=== PATIENT | male | born 2000 | race Two or more races ===

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

== ENCOUNTER 2019-02-09 11:30 | Inpatient (IN) | payer OTHER ==
[~2019-02-09] VITALS: Ht 182.9 cm; Wt 118.2 kg
[~2019-02-09 11:30] MED LIST changes: -CloNIDine HCL 0.2 MG TABLET PO ONE; -LISINOPRIL 10 MG TABLET PO ONE
[2019-02-09 12:24] LABS: GLUCOSE,POINT OF CARE 164 MG/DL (70-110)
[2019-02-09] MEDS ORDERED: INSNOV SQ (12:38)
[2019-02-09] MEDS ORDERED: AMLO-511 PO (12:38)
[2019-02-09] MEDS ORDERED: TAMS-1 PO (12:38)
[2019-02-09] MEDS ORDERED: INSU300I3 SQ (12:38)
[2019-02-09] MEDS ORDERED: INSU100V SQ (12:38)
[2019-02-09] MEDS ORDERED: GLUC1VIA3 INJ (12:38)
[2019-02-09] MEDS ORDERED: HYDR25TA PO (12:38)
[2019-02-09] MEDS ORDERED: INSLAN SQ (12:38)
[2019-02-09] MEDS ORDERED: INSU100I15 SQ (12:38)
[2019-02-09] MEDS ORDERED: FERR-89 PO (12:38)
[2019-02-09] MEDS ORDERED: VITAD1000 PO (12:38)
[2019-02-09 14:50] LABS: BASOPHILS % (AUTO) 0.3 % (0.0-2.0); EOSINOPHILS % (AUTO) 3.3 % (1.0-6.0); HEMATOCRIT 31.5 % (41-53); HEMOGLOBIN 10.1 g/dL (13.5-17.5); LYMPHOCYTES # (AUTO) 1.1 K/uL (1.0-4.8); LYMPHOCYTES % (AUTO) 27.1 % (22.0-44.0); MEAN CORPUSCULAR HEMOGLOBIN 26.4 pg (26.0-34.0); MEAN CORPUSCULAR HGB CONC 32.2 G/dL (31.0-37.0); MEAN CORPUSCULAR VOLUME 82 fL (80-100); MONOCYTES # (AUTO) 0.3 K/uL (0.1-1.0); MONOCYTES % (AUTO) 8.4 % (2.0-9.0); NEUTROPHILS # (AUTO) 2.4 K/uL (1.8-7.7); NEUTROPHILS % (AUTO) 60.9 % (40.0-70.0); PLATELET COUNT (AUTO) 197 K/uL (150-450); RED BLOOD CELL COUNT(AUTO) 3.84 MIL/uL (4.50-5.90); RED CELL DISTRIBUTION WIDTH 12.8 % (11.5-14.5)
[2019-02-09 14:56] LABS: APPEARANCE,URINE CLEAR (CLEAR); BILIRUBIN,URINE NEGATIVE (NEGATIVE); GLUCOSE, URINE (UA) NEGATIVE (NEGATIVE); KETONES,URINE NEGATIVE (NEGATIVE); LEUKOCYTE ESTERASE ,URINE TRACE (NEGATIVE); NITRATE,URINE NEGATIVE (NEGATIVE); OCCULT BLOOD,URINE NEGATIVE (NEGATIVE); PROTEIN,URINE NEGATIVE (NEGATIVE); UROBILINOGEN,URINE 0.2 mg/dL (<=1.0)
[2019-02-09 15:06] LABS: ALBUMIN 3.9 g/dL (3.4-5.0); BILIRUBIN,TOTAL 0.4 mg/dL (0.1-1.0); CALCIUM, TOTAL 9.3 mg/dL (8.8-10.5); CREATININE 4.69 mg/dL (0.60-1.30); TOTAL PROTEIN, SERUM 8.9 g/dL (6.4-8.2)
[2019-02-09 15:20] LABS: BACTERIA,URINE None Seen /HPF (None Seen); RBC,URINE None Seen /HPF (0-2); SQUAMOUS EPITHELIAL CELL,UR None Seen /LPF (None Seen); WBC,URINE None Seen /HPF (0-5)
[2019-02-09] MEDS ORDERED: SODIUM POLYSTYRENE SULFONATE 15 GM/60 ML SUSPENSION BOTTLE PO ONE (15:30)
[2019-02-09] MEDS ORDERED: DEXTROSE 50%-WATER 25 GM/50 ML SYRINGE IVP ONE (15:30)
[2019-02-09] MEDS ORDERED: INSULIN REGULAR, HUMAN 100 UNITS/ML SQ ONE (15:30)
[2019-02-09] MEDS ORDERED: ALBUTEROL SULFATE 5 MG/ML 20 ML NEB SOLN [BULK] NEB ONE (15:30)
[2019-02-09 16:09] LABS: GLUCOSE,POINT OF CARE 119 MG/DL (70-110)
[2019-02-09] MEDS ORDERED: 0.9% SODIUM CHLORIDE 5 ML NEB SOLUTION NEB ONE (16:10)
[2019-02-09] MEDS ORDERED: DEXTROSE 50%-WATER 25 GM/50 ML SYRINGE IVP PRN (16:30)
[2019-02-09] MEDS ORDERED: ACETAMINOPHEN 325 MG TABLET PO PRN (16:30)
[2019-02-09] MEDS ORDERED: BUMETANIDE 0.25 MG/ML 4 ML VIAL IVP ONE (16:30)
[2019-02-09] MEDS: AmLODIPine BESYLATE 5 MG TABLET PO SCH (17:02)
[2019-02-09 18:23] VITALS: BP 160/96
[2019-02-09 20:04] LABS: CALCIUM, TOTAL 9.1 mg/dL (8.8-10.5); CREATININE 4.84 mg/dL (0.60-1.30); POTASSIUM 4.8 mmol/L (3.5-5.1)
[2019-02-09] MEDS: DOCUSATE SODIUM 100 MG CAPSULE PO SCH (20:27)
[2019-02-09 20:32] VITALS: BP 143/96
[2019-02-09] MEDS: INSULIN LISPRO 100 UNITS/ML SQ PRN (20:54)
[2019-02-10 00:22] VITALS: BP 139/87
[2019-02-10 04:00] VITALS: BP 150/80
[2019-02-10] MEDS: INSULIN LISPRO 100 UNITS/ML SQ PRN ×4 (06:17→21:33)
[2019-02-10 06:50] LABS: GLUCOMETER DEV NAME(LOC) 5S.1; GLUCOSE,POINT OF CARE 145 MG/DL (70-110)
[2019-02-10 06:50] LABS: GLUCOMETER DEV NAME(LOC) 5S.1; GLUCOSE,POINT OF CARE 110 MG/DL (70-110)
[2019-02-10 07:28] VITALS: BP 151/77
[2019-02-10] MEDS: AmLODIPine BESYLATE 5 MG TABLET PO SCH (08:09)
[2019-02-10] MEDS: DOCUSATE SODIUM 100 MG CAPSULE PO SCH ×2 (08:09→19:54)
[2019-02-10 11:00] VITALS: BP 143/88
[2019-02-10 14:54] LABS: GLUCOMETER DEV NAME(LOC) 5S.1; GLUCOSE,POINT OF CARE 181 MG/DL (70-110)
[2019-02-10 15:30] VITALS: BP 150/91
[2019-02-10] MEDS: HYDROCODONE/ACETAMINOPHEN 5-325 MG TABLET PO PRN ×2 (16:41→23:39)
[2019-02-10 19:54] VITALS: BP 157/99
[2019-02-11] VITALS (8 sets, daily range): BP systolic 136–156; BP diastolic 74–119
[2019-02-11 02:19] LABS: GLUCOMETER DEV NAME(LOC) 5S.1; GLUCOSE,POINT OF CARE 165 MG/DL (70-110)
[2019-02-11] MEDS: HYDROCODONE/ACETAMINOPHEN 5-325 MG TABLET PO PRN ×3 (05:22→16:06)
[2019-02-11] MEDS: INSULIN LISPRO 100 UNITS/ML SQ PRN ×4 (05:23→21:12)
[2019-02-11 06:42] LABS: BASOPHILS % (AUTO) 0.6 % (0.0-2.0); EOSINOPHILS % (AUTO) 5.1 % (1.0-6.0); HEMATOCRIT 29.7 % (41-53); HEMOGLOBIN 9.5 g/dL (13.5-17.5); LYMPHOCYTES # (AUTO) 1.1 K/uL (1.0-4.8); LYMPHOCYTES % (AUTO) 35.4 % (22.0-44.0); MEAN CORPUSCULAR HEMOGLOBIN 26.6 pg (26.0-34.0); MEAN CORPUSCULAR VOLUME 83 fL (80-100); MONOCYTES # (AUTO) 0.4 K/uL (0.1-1.0); MONOCYTES % (AUTO) 11.7 % (2.0-9.0); NEUTROPHILS # (AUTO) 1.5 K/uL (1.8-7.7); NEUTROPHILS % (AUTO) 47.2 % (40.0-70.0); PLATELET COUNT (AUTO) 204 K/uL (150-450); RED BLOOD CELL COUNT(AUTO) 3.57 MIL/uL (4.50-5.90); RED CELL DISTRIBUTION WIDTH 12.8 % (11.5-14.5)
[2019-02-11 06:54] LABS: CALCIUM, TOTAL 9.2 mg/dL (8.8-10.5); CREATININE 3.87 mg/dL (0.60-1.30); PHOSPHORUS 6.3 mg/dL (2.5-4.9); POTASSIUM 4.4 mmol/L (3.5-5.1)
[2019-02-11 07:05] LABS: GLUCOMETER DEV NAME(LOC) 5N.2; GLUCOSE,POINT OF CARE 156 MG/DL (70-110)
[2019-02-11 07:05] LABS: GLUCOMETER DEV NAME(LOC) 5N.2; GLUCOSE,POINT OF CARE 148 MG/DL (70-110)
[2019-02-11] MEDS: DOCUSATE SODIUM 100 MG CAPSULE PO SCH ×2 (09:00→20:12)
[2019-02-11] MEDS: AmLODIPine BESYLATE 5 MG TABLET PO SCH (09:22)
[2019-02-11] MEDS ORDERED: AmLODIPine BESYLATE 5 MG TABLET PO ONE (11:15)
[2019-02-11] MEDS: SEVELAMER CARBONATE 800 MG TABLET PO SCH ×2 (12:06→17:15)
[2019-02-11 21:23] LABS: GLUCOMETER DEV NAME(LOC) 5S.1; GLUCOSE,POINT OF CARE 197 MG/DL (70-110)
[2019-02-11 23:00] LABS: GLUCOMETER DEV NAME(LOC) 5N.2; GLUCOSE,POINT OF CARE 186 MG/DL (70-110)
[2019-02-11 23:00] LABS: GLUCOMETER DEV NAME(LOC) 5N.2; GLUCOSE,POINT OF CARE 167 MG/DL (70-110)
[2019-02-12] MEDS: HYDROCODONE/ACETAMINOPHEN 5-325 MG TABLET PO PRN ×2 (00:10→09:03)
[2019-02-12 00:32] VITALS: BP 153/92
[2019-02-12 05:53] VITALS: BP 138/78
[2019-02-12] MEDS: INSULIN LISPRO 100 UNITS/ML SQ PRN ×2 (05:57→11:15)
[2019-02-12 06:15] LABS: GLUCOMETER DEV NAME(LOC) 5S.1; GLUCOSE,POINT OF CARE 176 MG/DL (70-110)
[2019-02-12 07:20] LABS: CALCIUM, TOTAL 9.5 mg/dL (8.8-10.5); CREATININE 3.3 mg/dL (0.60-1.30); POTASSIUM 4.5 mmol/L (3.5-5.1)
[2019-02-12 07:25] VITALS: BP 157/86
[2019-02-12] MEDS: SEVELAMER CARBONATE 800 MG TABLET PO SCH ×2 (08:00→12:35)
[2019-02-12] MEDS: DOCUSATE SODIUM 100 MG CAPSULE PO SCH (08:57)
[2019-02-12] MEDS ORDERED: AmLODIPine BESYLATE 5 MG TABLET PO SCH (09:00)
[2019-02-12 12:50] LABS: GLUCOMETER DEV NAME(LOC) 5S.1; GLUCOSE,POINT OF CARE 257 MG/DL (70-110)
== END 2019-02-12 12:49 | disposition home or self-care (01) | DRG 425 ==
LOC: EMS 11:30 → 5S 17:16 → 4E 02-10 18:05
PROVIDERS: ADMIT Internal Medicine; ATTEND Internal Medicine
DX: E87.5 Hyperkalemia (principal); N17.9 Acute kidney failure, unspecified; E11.21 Type 2 diabetes mellitus with diabetic nephropathy; E66.01 Morbid (severe) obesity due to excess calories; N18.5 Chronic kidney disease, stage 5; E11.22 Type 2 diabetes mellitus with diabetic chronic kidney disease; I12.9 Hypertensive chronic kidney disease with stage 1 through stage 4 chronic kidney disease, or unspecified chronic kidney disease; N13.9 Obstructive and reflux uropathy, unspecified; D64.9 Anemia, unspecified; E83.39 Other disorders of phosphorus metabolism; N13.30 Unspecified hydronephrosis; N36.8 Other specified disorders of urethra; Z79.4 Long term (current) use of insulin; Z68.35 Body mass index [BMI] 35.0-35.9, adult
CPT/HCPCS: 76770; 84100; 93005; 94644; 96372; 96374; G0378; J1815; J3490

== ENCOUNTER 2019-07-19 13:21 | Emergency (ER) | payer OTHER ==
[~2019-07-19] VITALS: Ht 183.5 cm; Wt 100.0 kg
[~2019-07-19 13:21] MED LIST changes: +AMLO5TAB9 PO; +CHOL100018 PO; +INSNOV SQ; -INSU100I15 SQ; -LISI-661 PO; +TAMS-1 PO
[2019-07-19 14:12] LABS: GLUCOSE,POINT OF CARE > 600 MG/DL (70-110)
[2019-07-19] MEDS ORDERED: INSULIN REGULAR, HUMAN 100 UNITS/ML IVP ONE ×2 (14:30→15:15)
[2019-07-19] MEDS ORDERED: SODIUM CHLORIDE 0.9% 1,000 ML IV ONE ×2 (14:30→15:15)
[2019-07-19 14:40] LABS: HEMATOCRIT 32.3 % (41-53); HEMOGLOBIN 10.3 g/dL (13.5-17.5); MEAN CORPUSCULAR HEMOGLOBIN 25.6 pg (26.0-34.0); MEAN CORPUSCULAR VOLUME 80 fL (80-100); PLATELET COUNT (AUTO) 186 K/uL (150-450); RED BLOOD CELL COUNT(AUTO) 4.03 MIL/uL (4.50-5.90)
[2019-07-19 15:02] LABS: CALCIUM, TOTAL 8.4 mg/dL (8.8-10.5); CREATININE 4.61 mg/dL (0.60-1.30); POTASSIUM 5.7 mmol/L (3.5-5.1)
[2019-07-19 15:28] LABS: GLUCOSE,POINT OF CARE 460 MG/DL (70-110)
[2019-07-19 15:48] LABS: APPEARANCE,URINE CLEAR (CLEAR); BILIRUBIN,URINE NEGATIVE (NEGATIVE); GLUCOSE, URINE (UA) >=1000 mg/dL (NEGATIVE); KETONES,URINE NEGATIVE (NEGATIVE); LEUKOCYTE ESTERASE ,URINE TRACE (NEGATIVE); NITRATE,URINE NEGATIVE (NEGATIVE); OCCULT BLOOD,URINE NEGATIVE (NEGATIVE); PH,URINE 6.5 (5.0-8.0); PROTEIN,URINE NEGATIVE (NEGATIVE); UROBILINOGEN,URINE 0.2 mg/dL (<=1.0)
[2019-07-19 15:52] LABS: BAND NEUTROPHILS % (MANUAL) 1 % (0-5); EOSINOPHILS % (MANUAL) 1 % (1-6); LYMPHOCYTES % (MANUAL) 18 % (22-44); MONOCYTES % (MANUAL) 2 % (2-9); REACTIVE LYMPHOCYTES 9 % (0-0); SEGMENTED NEUTROPHILS % 69 % (40-70)
[2019-07-19 15:53] LABS: PLATELET MORPHOLOGY COMMENT NORMAL
[2019-07-19 15:57] LABS: BACTERIA,URINE Rare /HPF (None Seen); RBC,URINE 0-2 /HPF (0-2); SQUAMOUS EPITHELIAL CELL,UR Rare /LPF (None Seen)
[2019-07-19 16:35] VITALS: BP 139/78
[2019-07-19 16:40] LABS: GLUCOSE,POINT OF CARE 213 MG/DL (70-110)
== END 2019-07-19 17:00 | disposition home or self-care (01) ==
LOC: EMS 13:27
DX: E11.65 Type 2 diabetes mellitus with hyperglycemia (principal); I10 Essential (primary) hypertension; Z79.899 Other long term (current) drug therapy; Z88.8 Allergy status to other drugs, medicaments and biological substances
CPT/HCPCS: 36415; 80048; 81001; 82962; 85025; 93005; 96361; 96374; 96376; 99285; J1815; J7030; 82948

== ENCOUNTER 2019-07-31 12:12 | Inpatient (IN) | payer OTHER ==
[~2019-07-31] VITALS: Ht 182.9 cm; Wt 116.5 kg
[2019-07-31 12:32] LABS: GLUCOSE,POINT OF CARE 308 MG/DL (70-110)
[2019-07-31] MEDS ORDERED: CHOL100018 PO (12:44)
[2019-07-31] MEDS ORDERED: INSULIN REGULAR, HUMAN 100 UNITS/ML IVP ONE (12:45)
[2019-07-31] MEDS ORDERED: SODIUM CHLORIDE 0.9% 1,000 ML IV ONE ×2 (12:45→23:30)
[2019-07-31] MEDS ORDERED: CefTRIAXone 1 GM/DEXTROSE 50 ML IV ONE (14:15)
[2019-07-31] MEDS ORDERED: SODIUM CHLORIDE 0.9% 2,000 ML IV ONE (14:15)
[2019-07-31] MEDS ORDERED: ACETAMINOPHEN 500 MG TABLET PO ONE (14:30)
[2019-07-31 14:31] LABS: BASOPHILS % (AUTO) 0.4 % (0.0-2.0); EOSINOPHILS % (AUTO) 2.7 % (1.0-6.0); LYMPHOCYTES # (AUTO) 1.2 K/uL (1.0-4.8); LYMPHOCYTES % (AUTO) 17.9 % (22.0-44.0); MEAN CORPUSCULAR HEMOGLOBIN 25.8 pg (26.0-34.0); MEAN CORPUSCULAR HGB CONC 32.2 G/dL (31.0-37.0); MEAN CORPUSCULAR VOLUME 80 fL (80-100); MONOCYTES # (AUTO) 0.7 K/uL (0.1-1.0); MONOCYTES % (AUTO) 10.1 % (2.0-9.0); NEUTROPHILS # (AUTO) 4.6 K/uL (1.8-7.7); NEUTROPHILS % (AUTO) 68.9 % (40.0-70.0); PLATELET COUNT (AUTO) 235 K/uL (150-450); RED BLOOD CELL COUNT(AUTO) 3.87 MIL/uL (4.50-5.90); RED CELL DISTRIBUTION WIDTH 13.1 % (11.5-14.5)
[2019-07-31 14:43] LABS: ANION GAP 15 mmol/L (8-16); CALCIUM, TOTAL 9.3 mg/dL (8.8-10.5); CARBON DIOXIDE 23 mmol/L (22-29); CHLORIDE 102 mmol/L (98-107); GLOMERULAR FILTR. RATE CALC 23 mL/min (>60); GLUCOSE,RANDOM 254 mg/dL (70-110); POTASSIUM 4.4 mmol/L (3.5-5.1); SODIUM SERUM 140 mmol/L (136-145); UREA NITROGEN, BLOOD 35 mg/dL (7-18)
[2019-07-31 14:48] LABS: ACETONE,BLOOD NEGATIVE (NEGATIVE); ALANINE AMINOTRANSFERASE 12 U/L (12-78); ALKALINE PHOSPHATASE 106 U/L (46-116); ASPARTATE AMINOTRANSFERASE 11 U/L (15-37); BILIRUBIN,TOTAL 0.5 mg/dL (0.1-1.0); LIPASE 231 U/L (73-393); TOTAL PROTEIN, SERUM 9.3 g/dL (6.4-8.2)
[2019-07-31 15:02] LABS: SITE, BLOOD GAS RT RADIAL; SOURCE, BLOOD GAS ARTERIAL; TEMPERATURE, FAHRENHEIT, BG 98.6 FAHREN (96.0-98.6)
[2019-07-31 15:03] LABS: ABG BASE EXCESS -6.4 mmol/L (-2.0-3.0); ABG HCO3 19.8 mmol/L (22.0-26.0); ABG OXYHEMOGLOBIN 95.2 % (94.0-100.0); ABG PCO2 32 mmHg (35-45); ABG PH 7.381 (7.350-7.450); ABG TOTAL HEMOGLOBIN 9.8 G/dL (12.0-18.0); PO2, ARTERIAL BG 81.6 mmHg (80.0-100.0)
[2019-07-31 15:04] LABS: ABG A-A DIFF O2 29.6 mmHg (10-20.0); ABG CARBOXYHEMOGLOBIN 0.8 % (0.0-3.0); ABG METHEMOGLOBIN 0.3 % (0.0-1.5); ABG OXYGEN CONTENT 13.2 mL/dL (15.0-23.0); ABG OXYGEN SATURATION 96.3 % (95.0-98.0); O2 DEVICE,BLOOD GAS ROOM AIR (ROOM AIR)
[2019-07-31 15:51] LABS: INFLUENZA TYPE A NEGATIVE FOR TYPE A (NEGATIVE); INFLUENZA TYPE B NEGATIVE FOR TYPE B (NEGATIVE)
[2019-07-31 16:28] LABS: APPEARANCE,URINE CLOUDY (CLEAR); BILIRUBIN,URINE NEGATIVE (NEGATIVE); GLUCOSE, URINE (UA) 250 mg/dL (NEGATIVE); KETONES,URINE NEGATIVE (NEGATIVE); LEUKOCYTE ESTERASE ,URINE LARGE (NEGATIVE); NITRATE,URINE NEGATIVE (NEGATIVE); OCCULT BLOOD,URINE LARGE (NEGATIVE); PROTEIN,URINE SEE CONFIRM (NEGATIVE); UROBILINOGEN,URINE 0.2 mg/dL (<=1.0)
[2019-07-31 16:40] LABS: SULFOSALICYLIC ACID,URINE 4+ (Negative)
[2019-07-31 16:42] LABS: BACTERIA,URINE Few /HPF (None Seen); SQUAMOUS EPITHELIAL CELL,UR Rare /LPF (None Seen)
[2019-07-31] MEDS ORDERED: IBUPROFEN 600 MG TABLET PO ONE (18:00)
[2019-07-31] MEDS ORDERED: ACETAMINOPHEN 325 MG TABLET PO PRN (18:15)
[2019-07-31] MEDS ORDERED: ONDANSETRON HCL 4 MG/2 ML VIAL IVP PRN (18:15)
[2019-07-31] MEDS ORDERED: 0.9% SODIUM CHLORIDE 10 ML SYRINGE IVP PRN (18:15)
[2019-07-31 20:20] VITALS: BP 142/57
[2019-07-31] MEDS ORDERED: OxyCODONE HCL/ACETAMINOPHEN 5-325 MG TABLET PO PRN (23:30)
[2019-07-31 23:40] VITALS: BP_SYST 130; BP_SYST 139; BP_DIAS 76; BP_DIAS 86
[2019-08-01] MEDS ORDERED: 0.9% SODIUM CHLORIDE 10 ML SYRINGE IVP PRN (02:15)
[2019-08-01] MEDS ORDERED: INSULIN LISPRO 100 UNITS/ML SQ PRN (02:15)
[2019-08-01] MEDS ORDERED: OxyCODONE HCL/ACETAMINOPHEN 5-325 MG TABLET PO PRN (02:15)
[2019-08-01] MEDS ORDERED: DEXTROSE 50%-WATER 25 GM/50 ML SYRINGE IVP PRN (02:15)
[2019-08-01] MEDS ORDERED: GLUCAGON,HUMAN RECOMBINANT 1 MG VIAL IM PRN (02:15)
[2019-08-01 04:05] VITALS: BP 138/74
[2019-08-01] MEDS: INSULIN LISPRO 100 UNITS/ML SQ PRN ×4 (06:08→20:48)
[2019-08-01 06:31] LABS: GLUCOMETER DEV NAME(LOC) 6N.1; GLUCOSE,POINT OF CARE 159 MG/DL (70-110)
[2019-08-01 06:32] LABS: GLUCOMETER DEV NAME(LOC) 6N.1; GLUCOSE,POINT OF CARE 242 MG/DL (70-110)
[2019-08-01 07:35] VITALS: BP 152/97
[2019-08-01 07:47] LABS: BASOPHILS % (AUTO) 0.4 % (0.0-2.0); EOSINOPHILS % (AUTO) 3.8 % (1.0-6.0); HEMATOCRIT 26.9 % (41-53); HEMOGLOBIN 8.8 g/dL (13.5-17.5); LYMPHOCYTES # (AUTO) 0.9 K/uL (1.0-4.8); LYMPHOCYTES % (AUTO) 15.2 % (22.0-44.0); MEAN CORPUSCULAR HEMOGLOBIN 25.9 pg (26.0-34.0); MEAN CORPUSCULAR HGB CONC 32.6 G/dL (31.0-37.0); MEAN CORPUSCULAR VOLUME 79 fL (80-100); MONOCYTES # (AUTO) 0.7 K/uL (0.1-1.0); MONOCYTES % (AUTO) 10.9 % (2.0-9.0); NEUTROPHILS # (AUTO) 4.3 K/uL (1.8-7.7); NEUTROPHILS % (AUTO) 69.7 % (40.0-70.0); PLATELET COUNT (AUTO) 209 K/uL (150-450); RED CELL DISTRIBUTION WIDTH 13.4 % (11.5-14.5)
[2019-08-01 08:01] LABS: ALBUMIN 3.4 g/dL (3.4-5.0); BILIRUBIN,TOTAL 0.5 mg/dL (0.1-1.0); CREATININE 2.98 mg/dL (0.60-1.30); POTASSIUM 4.4 mmol/L (3.5-5.1); TOTAL PROTEIN, SERUM 8.7 g/dL (6.4-8.2)
[2019-08-01 08:20] LABS: CALCIUM, TOTAL 9.1 mg/dL (8.8-10.5)
[2019-08-01] MEDS: DOCUSATE SODIUM 100 MG CAPSULE PO SCH ×2 (09:42→20:47)
[2019-08-01] MEDS: TAMSULOSIN HCL 0.4 MG CAPSULE PO SCH (09:42)
[2019-08-01] MEDS: AmLODIPine BESYLATE 5 MG TABLET PO SCH (09:42)
[2019-08-01] MEDS: FAMOTIDINE 10 MG/ML 2 ML VIAL IVP SCH (09:43)
[2019-08-01 11:37] VITALS: BP 136/97
[2019-08-01] MEDS ORDERED: ACETAMINOPHEN 325 MG TABLET PO PRN (13:30)
[2019-08-01 14:03] LABS: GLUCOMETER DEV NAME(LOC) 6N.2; GLUCOSE,POINT OF CARE 186 MG/DL (70-110)
[2019-08-01 15:17] VITALS: BP 131/68
[2019-08-01] MEDS: CefTRIAXone 1 GM/DEXTROSE 50 ML IV SCH (16:34)
[2019-08-01 17:49] LABS: GLUCOMETER DEV NAME(LOC) 4E.2; GLUCOSE,POINT OF CARE 136 MG/DL (70-110)
[2019-08-01 19:33] VITALS: BP 122/75
[2019-08-01 22:25] LABS: GLUCOMETER DEV NAME(LOC) 6N.2; GLUCOSE,POINT OF CARE 226 MG/DL (70-110)
[2019-08-01 23:56] VITALS: BP 118/75
[2019-08-02 05:25] VITALS: BP 130/68
[2019-08-02] MEDS: INSULIN LISPRO 100 UNITS/ML SQ PRN ×4 (05:27→21:03)
[2019-08-02 06:37] LABS: BASOPHILS % (AUTO) 0.6 % (0.0-2.0); EOSINOPHILS % (AUTO) 6.7 % (1.0-6.0); HEMATOCRIT 25.6 % (41-53); HEMOGLOBIN 8.4 g/dL (13.5-17.5); LYMPHOCYTES # (AUTO) 1.1 K/uL (1.0-4.8); LYMPHOCYTES % (AUTO) 24.1 % (22.0-44.0); MEAN CORPUSCULAR HEMOGLOBIN 26.4 pg (26.0-34.0); MEAN CORPUSCULAR HGB CONC 32.9 G/dL (31.0-37.0); MEAN CORPUSCULAR VOLUME 80 fL (80-100); MONOCYTES # (AUTO) 0.5 K/uL (0.1-1.0); MONOCYTES % (AUTO) 11.2 % (2.0-9.0); NEUTROPHILS # (AUTO) 2.6 K/uL (1.8-7.7); NEUTROPHILS % (AUTO) 57.4 % (40.0-70.0); PLATELET COUNT (AUTO) 229 K/uL (150-450); RED BLOOD CELL COUNT(AUTO) 3.18 MIL/uL (4.50-5.90)
[2019-08-02 06:41] LABS: CALCIUM, TOTAL 9.6 mg/dL (8.8-10.5); CREATININE 2.95 mg/dL (0.60-1.30); POTASSIUM 4.6 mmol/L (3.5-5.1)
[2019-08-02 07:06] LABS: GLUCOMETER DEV NAME(LOC) 6N.2; GLUCOSE,POINT OF CARE 262 MG/DL (70-110)
[2019-08-02 07:30] VITALS: BP 140/82
[2019-08-02] MEDS: FAMOTIDINE 10 MG/ML 2 ML VIAL IVP SCH (08:53)
[2019-08-02] MEDS: DOCUSATE SODIUM 100 MG CAPSULE PO SCH ×2 (08:53→20:57)
[2019-08-02] MEDS: AmLODIPine BESYLATE 5 MG TABLET PO SCH (08:53)
[2019-08-02] MEDS: TAMSULOSIN HCL 0.4 MG CAPSULE PO SCH (08:53)
[2019-08-02 11:15] VITALS: BP 137/88
[2019-08-02 13:48] LABS: GLUCOMETER DEV NAME(LOC) 6N.2; GLUCOSE,POINT OF CARE 227 MG/DL (70-110)
[2019-08-02 15:20] VITALS: BP 136/75
[2019-08-02] MEDS: OxyCODONE HCL/ACETAMINOPHEN 5-325 MG TABLET PO PRN ×2 (15:31→22:36)
[2019-08-02] MEDS: CefTRIAXone 1 GM/DEXTROSE 50 ML IV SCH (17:48)
[2019-08-02 18:35] LABS: GLUCOMETER DEV NAME(LOC) 4E.2; GLUCOSE,POINT OF CARE 182 MG/DL (70-110)
[2019-08-02 18:35] LABS: GLUCOMETER DEV NAME(LOC) 4E.2; GLUCOSE,POINT OF CARE 193 MG/DL (70-110)
[2019-08-02 19:59] VITALS: BP 128/76
[2019-08-02 22:25] LABS: GLUCOMETER DEV NAME(LOC) 6N.2; GLUCOSE,POINT OF CARE 310 MG/DL (70-110)
[2019-08-02 23:36] VITALS: BP 137/85
[2019-08-03 05:34] VITALS: BP 129/86
[2019-08-03] MEDS: INSULIN LISPRO 100 UNITS/ML SQ PRN ×4 (06:11→20:50)
[2019-08-03 07:51] VITALS: BP 110/80
[2019-08-03 07:52] LABS: GLUCOMETER DEV NAME(LOC) 4E.2; GLUCOSE,POINT OF CARE 204 MG/DL (70-110)
[2019-08-03] MEDS: AmLODIPine BESYLATE 5 MG TABLET PO SCH (08:54)
[2019-08-03] MEDS: TAMSULOSIN HCL 0.4 MG CAPSULE PO SCH (08:54)
[2019-08-03] MEDS: DOCUSATE SODIUM 100 MG CAPSULE PO SCH ×2 (08:54→20:49)
[2019-08-03] MEDS: ONDANSETRON HCL 4 MG/2 ML VIAL IVP PRN (08:55)
[2019-08-03] MEDS: FAMOTIDINE 10 MG/ML 2 ML VIAL IVP SCH (08:56)
[2019-08-03 11:13] VITALS: BP 134/76
[2019-08-03] MEDS: OxyCODONE HCL/ACETAMINOPHEN 5-325 MG TABLET PO PRN ×2 (13:03→20:49)
[2019-08-03 13:12] LABS: GLUCOMETER DEV NAME(LOC) 6N.2; GLUCOSE,POINT OF CARE 201 MG/DL (70-110)
[2019-08-03 15:24] VITALS: BP 146/90
[2019-08-03] MEDS ORDERED: SODIUM CHLORIDE 0.9% 250 ML IV ONE (16:17)
[2019-08-03] MEDS: CefTRIAXone 1 GM/DEXTROSE 50 ML IV SCH (16:24)
[2019-08-03 19:52] VITALS: BP 133/81
[2019-08-03 20:44] LABS: GLUCOMETER DEV NAME(LOC) 4E.2; GLUCOSE,POINT OF CARE 217 MG/DL (70-110)
[2019-08-03 23:56] VITALS: BP 141/75
[2019-08-04 02:57] LABS: GLUCOMETER DEV NAME(LOC) 6N.2; GLUCOSE,POINT OF CARE 227 MG/DL (70-110)
[2019-08-04] MEDS: INSULIN LISPRO 100 UNITS/ML SQ PRN ×3 (06:01→17:39)
[2019-08-04] MEDS: OxyCODONE HCL/ACETAMINOPHEN 5-325 MG TABLET PO PRN (06:01)
[2019-08-04 06:18] VITALS: BP 137/76
[2019-08-04 06:53] LABS: BASOPHILS % (AUTO) 0.8 % (0.0-2.0); EOSINOPHILS % (AUTO) 7.1 % (1.0-6.0); HEMATOCRIT 26.7 % (41-53); HEMOGLOBIN 8.9 g/dL (13.5-17.5); LYMPHOCYTES # (AUTO) 1.4 K/uL (1.0-4.8); LYMPHOCYTES % (AUTO) 39.2 % (22.0-44.0); MEAN CORPUSCULAR HEMOGLOBIN 26.2 pg (26.0-34.0); MEAN CORPUSCULAR HGB CONC 33.4 G/dL (31.0-37.0); MEAN CORPUSCULAR VOLUME 78 fL (80-100); MONOCYTES # (AUTO) 0.2 K/uL (0.1-1.0); NEUTROPHILS # (AUTO) 1.6 K/uL (1.8-7.7); NEUTROPHILS % (AUTO) 46.9 % (40.0-70.0); PLATELET COUNT (AUTO) 284 K/uL (150-450); RED CELL DISTRIBUTION WIDTH 12.9 % (11.5-14.5)
[2019-08-04 07:03] LABS: CALCIUM, TOTAL 9.5 mg/dL (8.8-10.5); CREATININE 2.7 mg/dL (0.60-1.30)
[2019-08-04 08:13] VITALS: BP 136/77
[2019-08-04] MEDS: DOCUSATE SODIUM 100 MG CAPSULE PO SCH (08:43)
[2019-08-04] MEDS: TAMSULOSIN HCL 0.4 MG CAPSULE PO SCH (08:43)
[2019-08-04] MEDS: AmLODIPine BESYLATE 5 MG TABLET PO SCH (08:43)
[2019-08-04] MEDS: FAMOTIDINE 10 MG/ML 2 ML VIAL IVP SCH (08:43)
[2019-08-04] MEDS: ONDANSETRON HCL 4 MG/2 ML VIAL IVP PRN (09:05)
[2019-08-04] MEDS ORDERED: LEVOFLOXACIN 500 MG TABLET PO SCH (11:00)
[2019-08-04 11:51] LABS: GLUCOMETER DEV NAME(LOC) 6N.2; GLUCOSE,POINT OF CARE 201 MG/DL (70-110)
[2019-08-04 12:26] VITALS: BP 131/77
[2019-08-04] MEDS ORDERED: PNEUMOCOCCAL VACCINE POLYVALENT 0.5 ML VIAL [PPSV23] IM ONE (15:45)
[2019-08-04] MEDS ORDERED: OXYC-601 PO (18:31)
[2019-08-04] MEDS ORDERED: LEVO500 PO (18:37)
[2019-08-04 19:15] LABS: GLUCOMETER DEV NAME(LOC) 4E.2; GLUCOSE,POINT OF CARE 139 MG/DL (70-110)
[2019-08-04 19:15] LABS: GLUCOMETER DEV NAME(LOC) 4E.2; GLUCOSE,POINT OF CARE 192 MG/DL (70-110)
== END 2019-08-04 19:40 | disposition home or self-care (01) | DRG 463 ==
LOC: EMS 12:13 → 6N 18:22 → 4E 08-01 06:41
PROVIDERS: ADMIT Internal Medicine; ATTEND Internal Medicine
DX: N13.6 Pyonephrosis (principal); N17.9 Acute kidney failure, unspecified; E11.22 Type 2 diabetes mellitus with diabetic chronic kidney disease; E11.65 Type 2 diabetes mellitus with hyperglycemia; N12 Tubulo-interstitial nephritis, not specified as acute or chronic; N18.9 Chronic kidney disease, unspecified; R33.9 Retention of urine, unspecified; D63.8 Anemia in other chronic diseases classified elsewhere; I12.9 Hypertensive chronic kidney disease with stage 1 through stage 4 chronic kidney disease, or unspecified chronic kidney disease; N31.9 Neuromuscular dysfunction of bladder, unspecified; Z88.8 Allergy status to other drugs, medicaments and biological substances; Z79.4 Long term (current) use of insulin; Z87.440 Personal history of urinary (tract) infections; Z28.21 Immunization not carried out because of patient refusal
CPT/HCPCS: 36600; 51702; 74176; 82805; 83605; 87040; 87086; 87804; 96365; G0378; J0696; J1815; J2405; J3490; J7030; J7050

== ENCOUNTER 2019-08-25 09:11 | Emergency (ER) | payer OTHER ==
[~2019-08-25] VITALS: Ht 182.9 cm; Wt 100.0 kg
[~2019-08-25 09:11] MED LIST changes: +LEVO500 PO; +OXYC-601 PO
[2019-08-25 09:30] LABS: GLUCOSE,POINT OF CARE 224 MG/DL (70-110)
[2019-08-25] MEDS ORDERED: SODIUM CHLORIDE 0.9% 1,000 ML IV ONE ×2 (10:19→10:45)
[2019-08-25 10:54] LABS: BASOPHILS % (AUTO) 0.6 % (0.0-2.0); HEMATOCRIT 30.6 % (41-53); HEMOGLOBIN 9.9 g/dL (13.5-17.5); LYMPHOCYTES # (AUTO) 0.9 K/uL (1.0-4.8); LYMPHOCYTES % (AUTO) 15.6 % (22.0-44.0); MEAN CORPUSCULAR HEMOGLOBIN 26.6 pg (26.0-34.0); MEAN CORPUSCULAR HGB CONC 32.5 G/dL (31.0-37.0); MEAN CORPUSCULAR VOLUME 82 fL (80-100); MONOCYTES # (AUTO) 0.7 K/uL (0.1-1.0); NEUTROPHILS # (AUTO) 3.9 K/uL (1.8-7.7); NEUTROPHILS % (AUTO) 68.8 % (40.0-70.0); PLATELET COUNT (AUTO) 161 K/uL (150-450); RED BLOOD CELL COUNT(AUTO) 3.74 MIL/uL (4.50-5.90); RED CELL DISTRIBUTION WIDTH 14.1 % (11.5-14.5)
[2019-08-25] MEDS ORDERED: ONDANSETRON HCL 4 MG/2 ML VIAL IVP ONE ×2 (11:00→15:00)
[2019-08-25] MEDS ORDERED: MORPHINE SULFATE 4 MG/ML SYRINGE IVP ONE ×2 (11:00→15:00)
[2019-08-25] MEDS ORDERED: ACETAMINOPHEN 500 MG TABLET PO ONE (11:00)
[2019-08-25 11:06] LABS: CALCIUM, TOTAL 9.6 mg/dL (8.8-10.5); CREATININE 2.6 mg/dL (0.60-1.30); POTASSIUM 4.4 mmol/L (3.5-5.1)
[2019-08-25 11:17] LABS: ALBUMIN 3.3 g/dL (3.4-5.0); BILIRUBIN,TOTAL 0.4 mg/dL (0.1-1.0); TOTAL PROTEIN, SERUM 8.5 g/dL (6.4-8.2)
[2019-08-25 11:28] LABS: APPEARANCE,URINE TURBID (CLEAR); BILIRUBIN,URINE NEGATIVE (NEGATIVE); GLUCOSE, URINE (UA) NEGATIVE (NEGATIVE); KETONES,URINE NEGATIVE (NEGATIVE); LEUKOCYTE ESTERASE ,URINE LARGE (NEGATIVE); NITRATE,URINE NEGATIVE (NEGATIVE); OCCULT BLOOD,URINE LARGE (NEGATIVE); PROTEIN,URINE SEE CONFIRM (NEGATIVE); UROBILINOGEN,URINE 0.2 mg/dL (<=1.0)
[2019-08-25 12:20] LABS: BACTERIA,URINE Moderate /HPF (None Seen); SULFOSALICYLIC ACID,URINE 3+ (Negative); WBC,URINE >100 /HPF (0-5)
[2019-08-25] MEDS ORDERED: LEVOFLOXACIN 750 MG/D5% WATER 150 ML IV ONE (13:30)
[2019-08-25 15:18] VITALS: BP 127/73
== END 2019-08-25 15:24 | disposition home or self-care (01) ==
LOC: EMS 09:12
DX: N39.0 Urinary tract infection, site not specified (principal); Q64.70 Unspecified congenital malformation of bladder and urethra; N13.30 Unspecified hydronephrosis; E11.22 Type 2 diabetes mellitus with diabetic chronic kidney disease; I12.9 Hypertensive chronic kidney disease with stage 1 through stage 4 chronic kidney disease, or unspecified chronic kidney disease; N18.9 Chronic kidney disease, unspecified; J02.9 Acute pharyngitis, unspecified; Z79.899 Other long term (current) drug therapy; Z79.84 Long term (current) use of oral hypoglycemic drugs
CPT/HCPCS: 36415; 76770; 80053; 81001; 82962; 83605; 83690; 85025; 87077; 87086; 87186; 96365; 96375; 96376; 99284; J1956; J2270; J2405; J7030

== ENCOUNTER 2019-09-04 16:34 | Inpatient (IN) | payer OTHER ==
[~2019-09-04] VITALS: Ht 188 cm; Wt 114.5 kg
[2019-09-04] MEDS ORDERED: SODIUM CHLORIDE 0.9% 1,000 ML IV ONE (17:15)
[2019-09-04] MEDS ORDERED: KETOROLAC TROMETHAMINE 30 MG/ML VIAL IVP ONE (17:15)
[2019-09-04 17:22] LABS: GLUCOSE,POINT OF CARE 170 MG/DL (70-110)
[2019-09-04 17:33] LABS: BASOPHILS % (AUTO) 0.4 % (0.0-2.0); EOSINOPHILS % (AUTO) 1.5 % (1.0-6.0); HEMATOCRIT 28.2 % (41-53); HEMOGLOBIN 9.2 g/dL (13.5-17.5); LYMPHOCYTES # (AUTO) 1.1 K/uL (1.0-4.8); LYMPHOCYTES % (AUTO) 15.4 % (22.0-44.0); MEAN CORPUSCULAR HEMOGLOBIN 26.2 pg (26.0-34.0); MEAN CORPUSCULAR HGB CONC 32.5 G/dL (31.0-37.0); MEAN CORPUSCULAR VOLUME 81 fL (80-100); MONOCYTES # (AUTO) 0.8 K/uL (0.1-1.0); MONOCYTES % (AUTO) 11.2 % (2.0-9.0); NEUTROPHILS # (AUTO) 4.9 K/uL (1.8-7.7); NEUTROPHILS % (AUTO) 71.5 % (40.0-70.0); PLATELET COUNT (AUTO) 342 K/uL (150-450); RED CELL DISTRIBUTION WIDTH 14.9 % (11.5-14.5)
[2019-09-04 17:44] LABS: CALCIUM, TOTAL 9.7 mg/dL (8.8-10.5); CREATININE 2.55 mg/dL (0.60-1.30); POTASSIUM 4.2 mmol/L (3.5-5.1)
[2019-09-04] MEDS ORDERED: ACETAMINOPHEN 500 MG TABLET PO ONE (17:45)
[2019-09-04 17:54] LABS: LACTIC ACID 1.9 mmol/L (0.4-2.0)
[2019-09-04 18:01] LABS: ALBUMIN 3.4 g/dL (3.4-5.0); BILIRUBIN,TOTAL 0.1 mg/dL (0.1-1.0); TOTAL PROTEIN, SERUM 9.1 g/dL (6.4-8.2)
[2019-09-04 18:40] LABS: APPEARANCE,URINE TURBID (CLEAR); BILIRUBIN,URINE NEGATIVE (NEGATIVE); GLUCOSE, URINE (UA) 250 mg/dL (NEGATIVE); KETONES,URINE NEGATIVE (NEGATIVE); LEUKOCYTE ESTERASE ,URINE LARGE (NEGATIVE); NITRATE,URINE NEGATIVE (NEGATIVE); OCCULT BLOOD,URINE MODERATE (NEGATIVE); PROTEIN,URINE SEE CONFIRM (NEGATIVE); UROBILINOGEN,URINE 0.2 mg/dL (<=1.0)
[2019-09-04] MEDS ORDERED: CEFEPIME HCL 1 GM in DEXTROSE 5%-WATER 50 ML IV ONE (18:45)
[2019-09-04] MEDS ORDERED: SODIUM CHLORIDE 0.9% 3,600 ML IV ONE (18:45)
[2019-09-04 18:54] LABS: SULFOSALICYLIC ACID,URINE 3+ (Negative)
[2019-09-04 18:56] LABS: BACTERIA,URINE Many /HPF (None Seen); SQUAMOUS EPITHELIAL CELL,UR Few /LPF (None Seen); WBC,URINE >100 /HPF (0-5)
[2019-09-04] MEDS ORDERED: ACETAMINOPHEN 325 MG TABLET PO PRN ×2 (20:00)
[2019-09-04] MEDS ORDERED: ONDANSETRON HCL 4 MG/2 ML VIAL IVP PRN ×2 (20:00)
[2019-09-04] MEDS ORDERED: 0.9% SODIUM CHLORIDE 10 ML SYRINGE IVP PRN (20:00)
[2019-09-04 21:12] LABS: GLUCOSE,POINT OF CARE 130 MG/DL (70-110)
[2019-09-04 21:38] VITALS: BP 128/80
[2019-09-04] MEDS ORDERED: PNEUMOCOCCAL VACCINE POLYVALENT 0.5 ML VIAL [PPSV23] IM ONE (22:00)
[2019-09-04 23:55] VITALS: BP 138/70
[2019-09-05] MEDS ORDERED: ONDANSETRON HCL 4 MG/2 ML VIAL IVP PRN (02:15)
[2019-09-05] MEDS ORDERED: IPRATROPIUM BROMIDE 0.5 MG/2.5 ML NEB SOLUTION NEB PRN (02:15)
[2019-09-05] MEDS ORDERED: BISACODYL 10 MG RECTAL RECTAL SUPPOSITORY PR PRN (02:15)
[2019-09-05] MEDS ORDERED: MAGNESIUM HYDROXIDE SUSPENSION 30 ML UDCUP PO PRN (02:15)
[2019-09-05] MEDS ORDERED: ACETAMINOPHEN 325 MG TABLET PO PRN (02:15)
[2019-09-05] MEDS ORDERED: ZOLPIDEM TARTRATE 5 MG TABLET PO PRN (02:15)
[2019-09-05] MEDS ORDERED: ALBUTEROL SULFATE 2.5 MG/0.5 ML NEB SOLUTION NEB PRN (02:15)
[2019-09-05] MEDS ORDERED: MORPHINE SULFATE 2 MG/ML SYRINGE IVP PRN (02:15)
[2019-09-05] MEDS ORDERED: DEXTROSE 50%-WATER 25 GM/50 ML SYRINGE IVP PRN (02:15)
[2019-09-05] MEDS: PIPERACILLIN/TAZO 3.375 GM/D5W 50 ML IV SCH ×4 (03:20→20:15)
[2019-09-05 05:18] VITALS: BP 125/76
[2019-09-05] MEDS: INSULIN LISPRO 100 UNITS/ML SQ PRN ×4 (05:45→20:57)
[2019-09-05 06:01] LABS: GLUCOMETER DEV NAME(LOC) 6N.2; GLUCOSE,POINT OF CARE 233 MG/DL (70-110)
[2019-09-05 06:14] LABS: BASOPHILS % (AUTO) 0.3 % (0.0-2.0); EOSINOPHILS % (AUTO) 1.7 % (1.0-6.0); HEMATOCRIT 26.6 % (41-53); HEMOGLOBIN 8.6 g/dL (13.5-17.5); LYMPHOCYTES % (AUTO) 19.2 % (22.0-44.0); MEAN CORPUSCULAR HEMOGLOBIN 25.8 pg (26.0-34.0); MEAN CORPUSCULAR HGB CONC 32.3 G/dL (31.0-37.0); MEAN CORPUSCULAR VOLUME 80 fL (80-100); MONOCYTES # (AUTO) 0.6 K/uL (0.1-1.0); NEUTROPHILS # (AUTO) 3.5 K/uL (1.8-7.7); NEUTROPHILS % (AUTO) 66.8 % (40.0-70.0); PLATELET COUNT (AUTO) 323 K/uL (150-450); RED BLOOD CELL COUNT(AUTO) 3.33 MIL/uL (4.50-5.90); RED CELL DISTRIBUTION WIDTH 14.3 % (11.5-14.5)
[2019-09-05 06:35] LABS: ALBUMIN 2.7 g/dL (3.4-5.0); BILIRUBIN,TOTAL 0.2 mg/dL (0.1-1.0); CALCIUM, TOTAL 8.9 mg/dL (8.8-10.5); CREATININE 2.54 mg/dL (0.60-1.30); POTASSIUM 4.4 mmol/L (3.5-5.1); TOTAL PROTEIN, SERUM 7.8 g/dL (6.4-8.2)
[2019-09-05 08:12] VITALS: BP 128/72
[2019-09-05] MEDS: TAMSULOSIN HCL 0.4 MG CAPSULE PO SCH (09:05)
[2019-09-05] MEDS: CHOLECALCIFEROL (VIT D3) 1,000 UNITS TABLET PO SCH (09:05)
[2019-09-05] MEDS: DOCUSATE SODIUM 100 MG CAPSULE PO SCH ×2 (09:05→20:15)
[2019-09-05] MEDS: AmLODIPine BESYLATE 5 MG TABLET PO SCH (09:05)
[2019-09-05] MEDS: HEPARIN SODIUM,PORCINE 5,000 UNITS/ML VIAL SQ SCH ×2 (09:06→17:22)
[2019-09-05 11:50] VITALS: BP 148/81
[2019-09-05] MEDS ORDERED: SODIUM CHLORIDE 0.9% 1,000 ML ONE (14:00)
[2019-09-05] MEDS ORDERED: SODIUM CHLORIDE 0.9% 250 ML IV ONE (15:08)
[2019-09-05 15:30] VITALS: BP 136/68
[2019-09-05 18:01] LABS: GLUCOMETER DEV NAME(LOC) 6N.2; GLUCOSE,POINT OF CARE 374 MG/DL (70-110)
[2019-09-05 18:02] LABS: GLUCOMETER DEV NAME(LOC) 6N.2; GLUCOSE,POINT OF CARE 111 MG/DL (70-110)
[2019-09-05 20:00] VITALS: BP 138/81
[2019-09-05 23:40] VITALS: BP 116/55
[2019-09-06] MEDS: HEPARIN SODIUM,PORCINE 5,000 UNITS/ML VIAL SQ SCH ×4 (00:55→23:18)
[2019-09-06] MEDS: PIPERACILLIN/TAZO 3.375 GM/D5W 50 ML IV SCH ×4 (02:17→20:34)
[2019-09-06 04:05] VITALS: BP 115/64
[2019-09-06] MEDS: INSULIN LISPRO 100 UNITS/ML SQ PRN ×4 (05:43→23:18)
[2019-09-06 07:56] LABS: BASOPHILS % (AUTO) 0.6 % (0.0-2.0); HEMATOCRIT 25.9 % (41-53); HEMOGLOBIN 8.5 g/dL (13.5-17.5); LYMPHOCYTES % (AUTO) 22.3 % (22.0-44.0); MEAN CORPUSCULAR HEMOGLOBIN 26.1 pg (26.0-34.0); MEAN CORPUSCULAR HGB CONC 32.9 G/dL (31.0-37.0); MEAN CORPUSCULAR VOLUME 79 fL (80-100); MONOCYTES # (AUTO) 0.5 K/uL (0.1-1.0); MONOCYTES % (AUTO) 10.2 % (2.0-9.0); NEUTROPHILS # (AUTO) 2.9 K/uL (1.8-7.7); NEUTROPHILS % (AUTO) 62.9 % (40.0-70.0); PLATELET COUNT (AUTO) 328 K/uL (150-450); RED BLOOD CELL COUNT(AUTO) 3.27 MIL/uL (4.50-5.90); RED CELL DISTRIBUTION WIDTH 14.4 % (11.5-14.5)
[2019-09-06 08:07] VITALS: BP 120/70
[2019-09-06 08:28] LABS: % IRON SATURATION 21.4 % (30-44)
[2019-09-06 08:38] LABS: CALCIUM, TOTAL 9.5 mg/dL (8.8-10.5); CREATININE 2.42 mg/dL (0.60-1.30); MAGNESIUM 1.6 mg/dL (1.80-2.40); PHOSPHORUS 4.6 mg/dL (2.5-4.9); POTASSIUM 4.3 mmol/L (3.5-5.1)
[2019-09-06] MEDS: AmLODIPine BESYLATE 5 MG TABLET PO SCH (08:45)
[2019-09-06] MEDS: CHOLECALCIFEROL (VIT D3) 1,000 UNITS TABLET PO SCH (08:45)
[2019-09-06] MEDS: TAMSULOSIN HCL 0.4 MG CAPSULE PO SCH (08:45)
[2019-09-06] MEDS: DOCUSATE SODIUM 100 MG CAPSULE PO SCH ×2 (08:46→20:34)
[2019-09-06 08:57] LABS: GLUCOMETER DEV NAME(LOC) 4E.2; GLUCOSE,POINT OF CARE 224 MG/DL (70-110)
[2019-09-06 11:38] VITALS: BP 140/70
[2019-09-06 15:30] VITALS: BP 128/79
[2019-09-06 19:41] VITALS: BP 131/72
[2019-09-06 20:34] LABS: GLUCOMETER DEV NAME(LOC) 6N.1; GLUCOSE,POINT OF CARE 220 MG/DL (70-110)
[2019-09-06] MEDS ORDERED: SODIUM CHLORIDE 0.9% 500 ML IV ONE (23:08)
[2019-09-06 23:36] VITALS: BP 133/84
[2019-09-06 23:41] LABS: GLUCOMETER DEV NAME(LOC) 4E.2; GLUCOSE,POINT OF CARE 305 MG/DL (70-110)
[2019-09-07] VITALS (7 sets, daily range): BP systolic 101–133; BP diastolic 51–73
[2019-09-07] MEDS: PIPERACILLIN/TAZO 3.375 GM/D5W 50 ML IV SCH ×4 (02:22→20:35)
[2019-09-07] MEDS: INSULIN LISPRO 100 UNITS/ML SQ PRN ×3 (05:54→20:43)
[2019-09-07 07:35] LABS: BASOPHILS % (AUTO) 0.7 % (0.0-2.0); EOSINOPHILS % (AUTO) 5.2 % (1.0-6.0); HEMATOCRIT 27.5 % (41-53); HEMOGLOBIN 8.8 g/dL (13.5-17.5); LYMPHOCYTES # (AUTO) 1.1 K/uL (1.0-4.8); LYMPHOCYTES % (AUTO) 33.9 % (22.0-44.0); MEAN CORPUSCULAR HEMOGLOBIN 25.3 pg (26.0-34.0); MEAN CORPUSCULAR VOLUME 79 fL (80-100); MONOCYTES # (AUTO) 0.3 K/uL (0.1-1.0); MONOCYTES % (AUTO) 10.2 % (2.0-9.0); NEUTROPHILS # (AUTO) 1.6 K/uL (1.8-7.7); PLATELET COUNT (AUTO) 356 K/uL (150-450); RED BLOOD CELL COUNT(AUTO) 3.48 MIL/uL (4.50-5.90); RED CELL DISTRIBUTION WIDTH 14.7 % (11.5-14.5)
[2019-09-07 07:43] LABS: CALCIUM, TOTAL 9.8 mg/dL (8.8-10.5); CREATININE 2.34 mg/dL (0.60-1.30); POTASSIUM 4.6 mmol/L (3.5-5.1)
[2019-09-07] MEDS: HEPARIN SODIUM,PORCINE 5,000 UNITS/ML VIAL SQ SCH ×3 (08:23→23:33)
[2019-09-07] MEDS: AmLODIPine BESYLATE 5 MG TABLET PO SCH ×2 (08:23→09:00)
[2019-09-07] MEDS: CHOLECALCIFEROL (VIT D3) 1,000 UNITS TABLET PO SCH (08:23)
[2019-09-07] MEDS: DOCUSATE SODIUM 100 MG CAPSULE PO SCH ×2 (08:23→20:34)
[2019-09-07] MEDS: TAMSULOSIN HCL 0.4 MG CAPSULE PO SCH (08:23)
[2019-09-07 15:24] LABS: GLUCOMETER DEV NAME(LOC) 4E.2; GLUCOSE,POINT OF CARE 191 MG/DL (70-110)
[2019-09-07 20:35] LABS: GLUCOMETER DEV NAME(LOC) 4E.2; GLUCOSE,POINT OF CARE 126 MG/DL (70-110)
[2019-09-07 21:29] LABS: GLUCOMETER DEV NAME(LOC) 6N.1; GLUCOSE,POINT OF CARE 146 MG/DL (70-110)
[2019-09-08] MEDS: PIPERACILLIN/TAZO 3.375 GM/D5W 50 ML IV SCH ×4 (04:42→21:02)
[2019-09-08 04:48] VITALS: BP 126/62
[2019-09-08] MEDS: INSULIN LISPRO 100 UNITS/ML SQ PRN ×3 (05:32→17:15)
[2019-09-08 06:33] LABS: GLUCOMETER DEV NAME(LOC) 6N.1; GLUCOSE,POINT OF CARE 304 MG/DL (70-110)
[2019-09-08 07:14] VITALS: BP 127/71
[2019-09-08 08:08] LABS: BASOPHILS % (AUTO) 0.6 % (0.0-2.0); EOSINOPHILS % (AUTO) 4.6 % (1.0-6.0); HEMATOCRIT 27.9 % (41-53); HEMOGLOBIN 9.1 g/dL (13.5-17.5); LYMPHOCYTES % (AUTO) 33.5 % (22.0-44.0); MEAN CORPUSCULAR HEMOGLOBIN 25.9 pg (26.0-34.0); MEAN CORPUSCULAR HGB CONC 32.8 G/dL (31.0-37.0); MEAN CORPUSCULAR VOLUME 79 fL (80-100); MONOCYTES # (AUTO) 0.3 K/uL (0.1-1.0); MONOCYTES % (AUTO) 10.3 % (2.0-9.0); NEUTROPHILS # (AUTO) 1.5 K/uL (1.8-7.7); PLATELET COUNT (AUTO) 366 K/uL (150-450); RED BLOOD CELL COUNT(AUTO) 3.53 MIL/uL (4.50-5.90); RED CELL DISTRIBUTION WIDTH 14.7 % (11.5-14.5)
[2019-09-08 08:20] LABS: CALCIUM, TOTAL 9.5 mg/dL (8.8-10.5); CREATININE 2.31 mg/dL (0.60-1.30); POTASSIUM 4.6 mmol/L (3.5-5.1)
[2019-09-08] MEDS: HEPARIN SODIUM,PORCINE 5,000 UNITS/ML VIAL SQ SCH ×3 (08:31→23:54)
[2019-09-08] MEDS: DOCUSATE SODIUM 100 MG CAPSULE PO SCH ×2 (08:31→21:02)
[2019-09-08] MEDS: TAMSULOSIN HCL 0.4 MG CAPSULE PO SCH (08:31)
[2019-09-08] MEDS: AmLODIPine BESYLATE 5 MG TABLET PO SCH (08:31)
[2019-09-08] MEDS: CHOLECALCIFEROL (VIT D3) 1,000 UNITS TABLET PO SCH (08:31)
[2019-09-08 11:03] VITALS: BP 96/58
[2019-09-08] MEDS: HYDROCODONE/ACETAMINOPHEN 5-325 MG TABLET PO PRN (12:19)
[2019-09-08 15:40] VITALS: BP 136/84
[2019-09-08 19:59] VITALS: BP 133/71
[2019-09-08 20:43] LABS: GLUCOMETER DEV NAME(LOC) 4E.2; GLUCOSE,POINT OF CARE 323 MG/DL (70-110)
[2019-09-08 20:43] LABS: GLUCOMETER DEV NAME(LOC) 4E.2; GLUCOSE,POINT OF CARE 167 MG/DL (70-110)
[2019-09-08 23:39] VITALS: BP 142/87
[2019-09-08] MEDS: OxyCODONE HCL/ACETAMINOPHEN 10-325 MG TABLET PO PRN (23:57)
[2019-09-09 00:29] LABS: GLUCOMETER DEV NAME(LOC) 4E.2; GLUCOSE,POINT OF CARE 447 MG/DL (70-110)
[2019-09-09] MEDS ORDERED: INSULIN LISPRO 100 UNITS/ML SQ ONE ×2 (00:30→21:30)
[2019-09-09] MEDS: PIPERACILLIN/TAZO 3.375 GM/D5W 50 ML IV SCH ×4 (02:29→20:28)
[2019-09-09 04:47] VITALS: BP 116/67
[2019-09-09] MEDS: INSULIN LISPRO 100 UNITS/ML SQ PRN ×4 (06:09→20:28)
[2019-09-09 06:14] LABS: GLUCOMETER DEV NAME(LOC) 4E.2; GLUCOSE,POINT OF CARE 159 MG/DL (70-110)
[2019-09-09 07:44] LABS: BASOPHILS % (AUTO) 0.4 % (0.0-2.0); EOSINOPHILS % (AUTO) 3.2 % (1.0-6.0); HEMATOCRIT 29.5 % (41-53); HEMOGLOBIN 9.5 g/dL (13.5-17.5); LYMPHOCYTES # (AUTO) 1.2 K/uL (1.0-4.8); LYMPHOCYTES % (AUTO) 39.5 % (22.0-44.0); MEAN CORPUSCULAR HEMOGLOBIN 25.2 pg (26.0-34.0); MEAN CORPUSCULAR HGB CONC 32.1 G/dL (31.0-37.0); MEAN CORPUSCULAR VOLUME 79 fL (80-100); MONOCYTES # (AUTO) 0.3 K/uL (0.1-1.0); NEUTROPHILS # (AUTO) 1.3 K/uL (1.8-7.7); NEUTROPHILS % (AUTO) 44.9 % (40.0-70.0); PLATELET COUNT (AUTO) 339 K/uL (150-450); RED BLOOD CELL COUNT(AUTO) 3.75 MIL/uL (4.50-5.90); RED CELL DISTRIBUTION WIDTH 15.4 % (11.5-14.5)
[2019-09-09 07:56] LABS: CALCIUM, TOTAL 9.4 mg/dL (8.8-10.5); CREATININE 2.42 mg/dL (0.60-1.30); POTASSIUM 4.3 mmol/L (3.5-5.1)
[2019-09-09 08:06] VITALS: BP 111/57
[2019-09-09] MEDS: HEPARIN SODIUM,PORCINE 5,000 UNITS/ML VIAL SQ SCH ×2 (08:41→16:13)
[2019-09-09] MEDS: DOCUSATE SODIUM 100 MG CAPSULE PO SCH ×2 (08:42→20:28)
[2019-09-09] MEDS: CHOLECALCIFEROL (VIT D3) 1,000 UNITS TABLET PO SCH (08:42)
[2019-09-09] MEDS: TAMSULOSIN HCL 0.4 MG CAPSULE PO SCH (08:42)
[2019-09-09] MEDS: AmLODIPine BESYLATE 5 MG TABLET PO SCH (08:42)
[2019-09-09 12:43] LABS: GLUCOMETER DEV NAME(LOC) 4E.2; GLUCOSE,POINT OF CARE 195 MG/DL (70-110)
[2019-09-09] MEDS: HYDROCODONE/ACETAMINOPHEN 5-325 MG TABLET PO PRN ×2 (13:55→21:27)
[2019-09-09 16:57] VITALS: BP 147/90
[2019-09-09 17:00] LABS: GLUCOMETER DEV NAME(LOC) 6N.1; GLUCOSE,POINT OF CARE 338 MG/DL (70-110)
[2019-09-09] MEDS: FERROUS SULFATE 325 MG EC TABLET PO SCH (17:27)
[2019-09-09 19:40] VITALS: BP 135/68
[2019-09-09 20:08] LABS: GLUCOMETER DEV NAME(LOC) 4E.2; GLUCOSE,POINT OF CARE 153 MG/DL (70-110)
[2019-09-09] MEDS ORDERED: SODIUM CHLORIDE 0.9% 500 ML IV ONE (20:16)
[2019-09-09] MEDS ORDERED: DEXTROSE 50%-WATER 25 GM/50 ML SYRINGE IVP PRN (22:00)
[2019-09-09 23:05] VITALS: BP 132/74
[2019-09-10] MEDS: HEPARIN SODIUM,PORCINE 5,000 UNITS/ML VIAL SQ SCH ×4 (00:10→23:20)
[2019-09-10] MEDS: PIPERACILLIN/TAZO 3.375 GM/D5W 50 ML IV SCH ×3 (02:44→15:28)
[2019-09-10 04:13] LABS: GLUCOMETER DEV NAME(LOC) 4E.2; GLUCOSE,POINT OF CARE 415 MG/DL (70-110)
[2019-09-10 05:25] VITALS: BP 126/69
[2019-09-10] MEDS: INSULIN LISPRO 100 UNITS/ML SQ PRN ×3 (06:06→17:23)
[2019-09-10] MEDS ORDERED: INSULIN GLARGINE,HUM.REC.ANLOG 100 UNITS/ML SQ ONE (07:00)
[2019-09-10 08:16] LABS: BASOPHILS % (AUTO) 0.3 % (0.0-2.0); EOSINOPHILS % (AUTO) 3.9 % (1.0-6.0); HEMATOCRIT 29.3 % (41-53); HEMOGLOBIN 9.3 g/dL (13.5-17.5); LYMPHOCYTES % (AUTO) 38.9 % (22.0-44.0); MEAN CORPUSCULAR HEMOGLOBIN 25.3 pg (26.0-34.0); MEAN CORPUSCULAR HGB CONC 31.9 G/dL (31.0-37.0); MEAN CORPUSCULAR VOLUME 79 fL (80-100); MONOCYTES # (AUTO) 0.3 K/uL (0.1-1.0); MONOCYTES % (AUTO) 12.6 % (2.0-9.0); NEUTROPHILS # (AUTO) 1.2 K/uL (1.8-7.7); NEUTROPHILS % (AUTO) 44.3 % (40.0-70.0); PLATELET COUNT (AUTO) 318 K/uL (150-450)
[2019-09-10 08:31] LABS: CALCIUM, TOTAL 9.5 mg/dL (8.8-10.5); CREATININE 2.5 mg/dL (0.60-1.30); POTASSIUM 4.6 mmol/L (3.5-5.1)
[2019-09-10] MEDS: TAMSULOSIN HCL 0.4 MG CAPSULE PO SCH (08:48)
[2019-09-10] MEDS: DOCUSATE SODIUM 100 MG CAPSULE PO SCH ×2 (08:48→21:13)
[2019-09-10] MEDS: CHOLECALCIFEROL (VIT D3) 1,000 UNITS TABLET PO SCH (08:49)
[2019-09-10] MEDS: FERROUS SULFATE 325 MG EC TABLET PO SCH ×2 (08:49→17:23)
[2019-09-10] MEDS: AmLODIPine BESYLATE 5 MG TABLET PO SCH (08:49)
[2019-09-10 08:51] VITALS: BP 130/79
[2019-09-10 11:47] VITALS: BP 135/56
[2019-09-10 13:24] LABS: GLUCOMETER DEV NAME(LOC) 6N.1; GLUCOSE,POINT OF CARE 216 MG/DL (70-110)
[2019-09-10] MEDS: OxyCODONE HCL/ACETAMINOPHEN 10-325 MG TABLET PO PRN (16:34)
[2019-09-10 20:25] VITALS: BP 141/79
[2019-09-10 20:28] LABS: GLUCOMETER DEV NAME(LOC) 6N.1; GLUCOSE,POINT OF CARE 164 MG/DL (70-110)
[2019-09-10 20:28] LABS: GLUCOMETER DEV NAME(LOC) 4E.2; GLUCOSE,POINT OF CARE 441 MG/DL (70-110)
[2019-09-10] MEDS: CEFEPIME HCL 2 GM in DEXTROSE 5%-WATER 50 ML IV SCH (21:13)
[2019-09-11] VITALS: BP 132/65
[2019-09-11 00:58] LABS: GLUCOMETER DEV NAME(LOC) 4E.2; GLUCOSE,POINT OF CARE 235 MG/DL (70-110)
[2019-09-11 04:00] VITALS: BP 109/51
[2019-09-11] MEDS: INSULIN LISPRO 100 UNITS/ML SQ PRN ×4 (06:29→20:10)
[2019-09-11 07:08] LABS: BASOPHILS % (AUTO) 0.3 % (0.0-2.0); EOSINOPHILS % (AUTO) 3.3 % (1.0-6.0); HEMATOCRIT 29.5 % (41-53); HEMOGLOBIN 9.6 g/dL (13.5-17.5); LYMPHOCYTES # (AUTO) 1.3 K/uL (1.0-4.8); LYMPHOCYTES % (AUTO) 33.8 % (22.0-44.0); MEAN CORPUSCULAR HEMOGLOBIN 25.7 pg (26.0-34.0); MEAN CORPUSCULAR HGB CONC 32.5 G/dL (31.0-37.0); MEAN CORPUSCULAR VOLUME 79 fL (80-100); MONOCYTES # (AUTO) 0.5 K/uL (0.1-1.0); MONOCYTES % (AUTO) 11.9 % (2.0-9.0); NEUTROPHILS # (AUTO) 1.9 K/uL (1.8-7.7); NEUTROPHILS % (AUTO) 50.7 % (40.0-70.0); PLATELET COUNT (AUTO) 318 K/uL (150-450); RED BLOOD CELL COUNT(AUTO) 3.74 MIL/uL (4.50-5.90); RED CELL DISTRIBUTION WIDTH 15.3 % (11.5-14.5)
[2019-09-11 07:15] LABS: CALCIUM, TOTAL 10.2 mg/dL (8.8-10.5); CREATININE 2.47 mg/dL (0.60-1.30); POTASSIUM 4.4 mmol/L (3.5-5.1)
[2019-09-11 07:45] VITALS: BP 130/83
[2019-09-11 07:49] LABS: GLUCOMETER DEV NAME(LOC) 4E.2; GLUCOSE,POINT OF CARE 229 MG/DL (70-110)
[2019-09-11] MEDS: CEFEPIME HCL 2 GM in DEXTROSE 5%-WATER 50 ML IV SCH ×2 (08:43→20:07)
[2019-09-11] MEDS: FERROUS SULFATE 325 MG EC TABLET PO SCH ×2 (08:43→17:34)
[2019-09-11] MEDS: HEPARIN SODIUM,PORCINE 5,000 UNITS/ML VIAL SQ SCH ×3 (08:43→23:43)
[2019-09-11] MEDS: INSULIN GLARGINE,HUM.REC.ANLOG 100 UNITS/ML SQ SCH (08:54)
[2019-09-11] MEDS: TAMSULOSIN HCL 0.4 MG CAPSULE PO SCH (09:04)
[2019-09-11] MEDS: AmLODIPine BESYLATE 5 MG TABLET PO SCH (09:05)
[2019-09-11] MEDS: CHOLECALCIFEROL (VIT D3) 1,000 UNITS TABLET PO SCH (09:05)
[2019-09-11] MEDS: DOCUSATE SODIUM 100 MG CAPSULE PO SCH ×2 (09:05→20:05)
[2019-09-11 11:30] VITALS: BP 133/83
[2019-09-11 16:01] LABS: GLUCOMETER DEV NAME(LOC) 6N.1; GLUCOSE,POINT OF CARE 233 MG/DL (70-110)
[2019-09-11 16:07] LABS: GLUCOMETER DEV NAME(LOC) 4E.2; GLUCOSE,POINT OF CARE 214 MG/DL (70-110)
[2019-09-11 16:37] VITALS: BP 124/74
[2019-09-11 20:09] VITALS: BP 135/70
[2019-09-11 23:57] LABS: GLUCOMETER DEV NAME(LOC) 6N.1; GLUCOSE,POINT OF CARE 381 MG/DL (70-110)
[2019-09-12 00:29] VITALS: BP 135/72
[2019-09-12 05:09] VITALS: BP 117/53
[2019-09-12] MEDS: INSULIN LISPRO 100 UNITS/ML SQ PRN ×4 (06:28→20:38)
[2019-09-12 07:38] LABS: CALCIUM, TOTAL 10.2 mg/dL (8.8-10.5); CREATININE 2.38 mg/dL (0.60-1.30); POTASSIUM 4.5 mmol/L (3.5-5.1)
[2019-09-12 07:58] VITALS: BP 108/68
[2019-09-12] MEDS: CHOLECALCIFEROL (VIT D3) 1,000 UNITS TABLET PO SCH (08:59)
[2019-09-12] MEDS: FERROUS SULFATE 325 MG EC TABLET PO SCH ×2 (08:59→17:49)
[2019-09-12] MEDS: TAMSULOSIN HCL 0.4 MG CAPSULE PO SCH (09:00)
[2019-09-12] MEDS: AmLODIPine BESYLATE 5 MG TABLET PO SCH (09:00)
[2019-09-12] MEDS: DOCUSATE SODIUM 100 MG CAPSULE PO SCH ×2 (09:00→20:37)
[2019-09-12] MEDS: HEPARIN SODIUM,PORCINE 5,000 UNITS/ML VIAL SQ SCH ×2 (09:00→15:23)
[2019-09-12] MEDS: CEFEPIME HCL 2 GM in DEXTROSE 5%-WATER 50 ML IV SCH ×2 (09:09→20:37)
[2019-09-12] MEDS: INSULIN GLARGINE,HUM.REC.ANLOG 100 UNITS/ML SQ SCH (09:34)
[2019-09-12 10:41] LABS: GLUCOMETER DEV NAME(LOC) 4E.2; GLUCOSE,POINT OF CARE 219 MG/DL (70-110)
[2019-09-12 11:26] LABS: GLUCOMETER DEV NAME(LOC) 4E.2; GLUCOSE,POINT OF CARE 234 MG/DL (70-110)
[2019-09-12 11:43] VITALS: BP 130/77
[2019-09-12] MEDS ORDERED: CEFE2I IV (13:17)
[2019-09-12] MEDS ORDERED: FERR-89 PO (13:21)
[2019-09-12] MEDS ORDERED: ACET-2247 PO (13:23)
[2019-09-12] MEDS ORDERED: SENN1TAB86 PO (13:27)
[2019-09-12 14:03] LABS: GLUCOMETER DEV NAME(LOC) 6N.1; GLUCOSE,POINT OF CARE 197 MG/DL (70-110)
[2019-09-12 15:32] VITALS: BP 129/77
[2019-09-12 17:23] LABS: GLUCOMETER DEV NAME(LOC) 6N.1; GLUCOSE,POINT OF CARE 345 MG/DL (70-110)
[2019-09-12 19:30] VITALS: BP 140/84
[2019-09-13] MEDS: HEPARIN SODIUM,PORCINE 5,000 UNITS/ML VIAL SQ SCH ×3 (00:08→17:19)
[2019-09-13 04:00] VITALS: BP_SYST 112; BP_SYST 130; BP_DIAS 71; BP_DIAS 78
[2019-09-13] MEDS: INSULIN LISPRO 100 UNITS/ML SQ PRN ×3 (06:12→17:27)
[2019-09-13 07:18] LABS: BASOPHILS % (AUTO) 0.5 % (0.0-2.0); EOSINOPHILS % (AUTO) 2.9 % (1.0-6.0); HEMATOCRIT 29.6 % (41-53); HEMOGLOBIN 9.6 g/dL (13.5-17.5); LYMPHOCYTES # (AUTO) 1.2 K/uL (1.0-4.8); LYMPHOCYTES % (AUTO) 33.3 % (22.0-44.0); MEAN CORPUSCULAR HEMOGLOBIN 25.7 pg (26.0-34.0); MEAN CORPUSCULAR HGB CONC 32.6 G/dL (31.0-37.0); MEAN CORPUSCULAR VOLUME 79 fL (80-100); MONOCYTES # (AUTO) 0.4 K/uL (0.1-1.0); NEUTROPHILS # (AUTO) 1.9 K/uL (1.8-7.7); NEUTROPHILS % (AUTO) 51.3 % (40.0-70.0); PLATELET COUNT (AUTO) 265 K/uL (150-450); RED BLOOD CELL COUNT(AUTO) 3.76 MIL/uL (4.50-5.90); RED CELL DISTRIBUTION WIDTH 15.7 % (11.5-14.5)
[2019-09-13 07:42] VITALS: BP 102/52
[2019-09-13 08:08] LABS: CALCIUM, TOTAL 9.6 mg/dL (8.8-10.5); CREATININE 2.23 mg/dL (0.60-1.30); POTASSIUM 4.4 mmol/L (3.5-5.1)
[2019-09-13 08:10] LABS: GLUCOMETER DEV NAME(LOC) 6N.1; GLUCOSE,POINT OF CARE 176 MG/DL (70-110)
[2019-09-13 08:10] LABS: GLUCOMETER DEV NAME(LOC) 6N.1; GLUCOSE,POINT OF CARE 299 MG/DL (70-110)
[2019-09-13] MEDS: CHOLECALCIFEROL (VIT D3) 1,000 UNITS TABLET PO SCH (08:11)
[2019-09-13] MEDS: FERROUS SULFATE 325 MG EC TABLET PO SCH ×2 (08:11→17:19)
[2019-09-13] MEDS: CEFEPIME HCL 2 GM in DEXTROSE 5%-WATER 50 ML IV SCH (08:12)
[2019-09-13] MEDS: TAMSULOSIN HCL 0.4 MG CAPSULE PO SCH (08:12)
[2019-09-13] MEDS: DOCUSATE SODIUM 100 MG CAPSULE PO SCH (08:12)
[2019-09-13] MEDS: AmLODIPine BESYLATE 5 MG TABLET PO SCH (08:12)
[2019-09-13] MEDS: INSULIN GLARGINE,HUM.REC.ANLOG 100 UNITS/ML SQ SCH (09:17)
[2019-09-13 12:12] VITALS: BP 128/71
[2019-09-13 12:44] LABS: GLUCOMETER DEV NAME(LOC) 6N.1; GLUCOSE,POINT OF CARE 202 MG/DL (70-110)
[2019-09-13 12:44] LABS: GLUCOMETER DEV NAME(LOC) 6N.1; GLUCOSE,POINT OF CARE 184 MG/DL (70-110)
[2019-09-13 15:39] VITALS: BP 137/68
[2019-09-14 12:17] LABS: GLUCOMETER DEV NAME(LOC) 4E.2; GLUCOSE,POINT OF CARE 275 MG/DL (70-110)
== END 2019-09-13 18:20 | disposition home or self-care (01) | DRG 720 ==
LOC: EMS 16:36 → 6N 21:12
PROVIDERS: ADMIT Hospitalist; ATTEND Hospitalist
DX: A41.9 Sepsis, unspecified organism (principal); E11.22 Type 2 diabetes mellitus with diabetic chronic kidney disease; N17.9 Acute kidney failure, unspecified; N13.30 Unspecified hydronephrosis; N18.3 Chronic kidney disease, stage 3 (moderate); N12 Tubulo-interstitial nephritis, not specified as acute or chronic; D50.9 Iron deficiency anemia, unspecified; N31.9 Neuromuscular dysfunction of bladder, unspecified; N32.0 Bladder-neck obstruction; I12.9 Hypertensive chronic kidney disease with stage 1 through stage 4 chronic kidney disease, or unspecified chronic kidney disease; W18.39XA Other fall on same level, initial encounter; Z87.440 Personal history of urinary (tract) infections; Z82.49 Family history of ischemic heart disease and other diseases of the circulatory system; Y93.89 Activity, other specified; Y92.89 Other specified places as the place of occurrence of the external cause; Y99.8 Other external cause status; Z28.21 Immunization not carried out because of patient refusal
CPT/HCPCS: 70450; 74176; 76770; 82728; 83036; 83540; 83550; 83605; 83735; 84100; 87086; 93005; 96365; 96375; 99291; J0692; J1644; J1815; J1885; J2543; J7030; J7040; J7050; J7060